=== PATIENT | female | born 1990 | race Caucasian/White ===

== ENCOUNTER 2019-01-18 12:08 | Emergency (ER) | payer MEDICAID ==
--- NOTE | 2019-01-18 12:59 | ED Physician Chart ---
ED Chief Complaint/HPI - Patient Information Date Seen:: 01/18/19 Time Seen:: 12:30 Chief Complaint:: left elbow discomfort withpalm hand tingling History of Present Illness:: approx one week unkown trauma Allergies:: Allergies Allergy/AdvReac Type Severity Reaction Status Date / Time No Known Allergies Allergy Verified 01/18/19 12:19 Vitals:: Vital Signs - 8 hr 01/18/19 12:19 Temp 98.2 F HR 73 RR 18 BP 115/62 O2 Sat % 99 ED Review of Systems - Review of Systems General/Constitutional: No fever Skin: No skin lesions Head: No headache Eyes: No loss of vision ENT: No earache Neck: No neck pain Cardio Vascular: No chest pain GI: No vomiting G/U: No dysuria Musculoskeletal: No bone or joint pain Endocrine: No polyuria Psychiatric: No prior psych history Hematopoietic: No bruising Allergic/Immuno: No urticaria Neurological: No syncope, Focal symptoms, No weakness, Paresthesia, No headache , No dizziness, No confusion, No vertigo ED Past Medical History - Past Medical History Past Medical History: No significant medical hx Family Medical History - Family Member Father Hx Family Diabetes: Yes ED Physical Exam - Physical Examination General/Constitutional: Awake, Well-developed, well-nourished, Alert, No distress, GCS 15, Non-toxic appearing, Ambulatory Head: Atraumatic Eyes: Lids, conjuctiva normal Skin: Nl inspection ENMT: External ears, nose nl Neck: Nontender Respiratory: Nl effort/Exclusion Cardio Vascular: RRR, No murmur, gallop, rubs GI: No tenderness/rebounding/guarding : No CVA tenderness Extremities: No tenderness or effusion Neuro/Psych: Alert/oriented, DTR's symmetric, Normal sensory exam, Normal motor strength, Judgement/insight normal, Mood normal, Normal gait, No focal deficits Misc: Normal back ED Assessment - Assessment General Assessment: ulnar paresthesis no cva ED Septic Shock - . Is Septic Shock (SBP<90, OR Lactate>4 mmol\L) present?: No - <6hrs of presentation: Vital Signs: Vital Signs - 8 hr 01/18/19 12:19 Temp 98.2 F HR 73 RR 18 BP 115/62 O2 Sat % 99 ED Reassessment (Disposition) - Reassessment Reassessment Condition:: Unchanged - Aftercare/Follow up Instructions Aftercare/Follow-Up Instructions:: Counseled pt regarding lab results/diagnosis & need follow up (discussed options for follow up and serious signs to aware of ) - Patient Disposition Discharge/Transfer:: Home
== END 2019-01-18 13:05 | disposition home or self-care (01) ==
LOC: ER 12:08
DX: R20.2 Paresthesia of skin (principal)
CPT/HCPCS: Z7502